=== PATIENT | male | born 1970 | race Caucasian/White ===

== ENCOUNTER 2016-12-18 11:30 | Observation (INO) | payer BC ==
--- NOTE | 2016-12-18 11:56 | Emergency Department Record ---
History of Present Illness - General Chief Complaint: Dizziness Stated Complaint: FLANK PAIN Time Seen by Provider: 12/18/16 11:37 Source: Patient Mode of Arrival: Stretcher Limitations: No limitations - History of Present Illness Initial Comments: The patient is here due to a multitude of complaints. He tripped and fell 2 days ago at home and his the back of his head on a metal object and also scraped is R flank on metal also. He has had some L facial numbness since the fall but denied any arm or leg weakness, numbness, tingling or balance issues. Today he was at work at the [employer] and began to feel some weakness, and then a L chest mild aching pain with mild SOB. There was no sweating, nausea, or new dizziness. 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 The patient's main complaint to EMS was from the fall and the flank pain. The patient's only cardiac risk factor is tobacco use. He has had a neg heart Cath many years ago and a neg EST a year ago per the patient. He also was admitted to the hospital about 14 months ago for the same thing and the facial numbness did resolve. MD Complaint: Dizziness, Lightheadedness Onset/Timin -: Hour(s) Description: Lightheadedness, Other Improves With: Nothing Worsens With: Nothing Associated Symptoms: Shortness of breath, Weakness - Reymundo Coma Scale Eye Response: (4) Open spontaneously Motor Response: (6) Obeys commands Verbal Response: (5) Oriented [place] Total: 15 - Related Data Home Medications Medication Instructions Recorded Confirmed Last Taken No Home Med [NO HOME MEDS] 12/18/16 12/18/16 Unknown Allergies Allergy/AdvReac Type Severity Reaction Status Date / Time No Known Drug Allergies Allergy Verified 10/12/15 09:17 Travel Screening - Travel/Exposure Within Last 30 Days Have you traveled within the last 30 days?: No - Travel/Exposure Within Last Year Have you traveled outside the [place] in the last year?: No - Additonal Travel Details Have you been exposed to anyone with a communicable illness?: No - Travel Symptoms Symptom Screening: None Review of Systems Constitutional: Denies: Chills, Fever Eyes: Denies: Eye discharge ENT: Denies: Congestion Respiratory: Denies: Cough, Dyspnea Past Medical History - SOCIAL HISTORY Smoking Status: Current every day smoker Alcohol Use: None Drug Use: None - RESPIRATORY Hx Respiratory Disorders: No - CARDIOVASCULAR Hx Cardio Disorders: Yes Hx Cardiac Cath: Yes Hx Chest Pain: Yes Comment:: stress test here 3 yrs ago - NEURO Hx Neuro Disorders: No - GI Hx GI Disorders: Yes Comment:: gastric bypass 1+ yr ago - Hx Genitourinary Disorders: No - ENDOCRINE Hx Endocrine Disorders: No Hx Diabetes: No Hx Thyroid Disease: No - MUSCULOSKELETAL Hx Musculoskeletal Disorders: No - PSYCH Hx Psych Problems: No - HEMATOLOGY/ONCOLOGY Hx Hematology/Oncology Disorders: No Family Medical History Any Significant Family History?: No Hx Cancer: Father Hx Diabetes: Mother Hx Heart Disease: Father, Brother/Sister Physical Exam - General General Appearance: Alert, Oriented x3, Cooperative, No acute distress - Head Head exam: Normocephalic. negative: Atraumatic (There is a healing superficial laceration to the R posterior parietal area.) - Eye Eye exam: Normal appearance, PERRL, EOMI - ENT Throat exam: Normal inspection. negative: Tonsillar erythema, Tonsillar exudate - Neck Neck exam: Normal inspection, Full ROM. negative: Tenderness - Respiratory Respiratory exam: Normal lung sounds bilaterally. negative: Respiratory distress - Cardiovascular Cardiovascular Exam: Regular rate, Normal rhythm, Normal heart sounds - GI/Abdominal GI/Abdominal exam: Soft, Normal bowel sounds. negative: Tenderness - Extremities Extremities exam: Normal inspection, Full ROM, Normal capillary refill. negative: Tenderness - Neurological Neurological exam: Alert, Normal gait, Oriented X3. negative: Abnormal gait, Altered, Motor sensory deficit (There is subjective numbness to the L lower face but it is very mild. There is no weakness or facial droop.) Course Vital Signs 12/18/16 11:40 Temperature 98.2 F Pulse Rate 98 H Respiratory 18 Rate Blood Pressure 112/50 Pulse Ox 54 L - Reevaluation(s) Reevaluation #1: The patient is doing very well at this time. He is resting comfortably with no CP or SOB or YIP. His L facial numbness has not changed and there are no signs of any significant injury on his head CT. Due to the nature of the patient's complaints I did discuss the case with Fatou (ANGELICA) and she did agree to admit the patient overnight. We will place a consult to Dr. Chinchilla and will admit the patient overnight. 12/18/16 13:42 Medical Decision Making - Data Complexity MDM Data: Labs Ordered and/or Reviewed, X-Ray Ordered and/or Reviewed, EKG Ordered and/or Reviewed - Lab Data Result diagrams: 12/18/16 12:09 12/18/16 12:09 - EKG Data -: EKG Interpreted by Me EKG: No Acute Changes, Normal EKG - Radiology Data Radiology results: Report reviewed (CXR: No acute changes. Head CT: Neg for any acute changes.) Disposition Disposition: Admit Clinical Impression: Left facial numbness Chest pain Qualifiers: Chest pain type: unspecified Qualified Code(s): R07.9 - Chest pain, unspecified Disposition: Still a Patient at [facility] Decision to Admit: Admit from ER Decision to Admit Date: 12/18/16 Decision to Admit Time: 13:44 Accepting Physician: Deysi Time Discussed w/Accepting Physician: 13:44 Condition: (2) Stable Time of Disposition: 13:44 Quality - Quality Measures Quality Measures: N/A - Blood Pressure Screening View Details: Yes Does Patient Have Any of the Following: No Blood Pressure Classification: Normal BP Reading Systolic Measurement: 112 Diastolic Measurement: 75 Screening for High Blood Pressure: < Normal BP, F/U Not Required > [G8783]
[2016-12-18] MEDS ORDERED: Diph,Pert(Acell),Tet Vac 0.5 ML SYR IM ONE (12:01)
[2016-12-18 12:25] LABS: BASO % 0.3 % (0-6); EOS % 1.2 % (0-6); GRAN % 53.3 % (47-80); HEMATOCRIT 42.2 % (42.0-52.0); HEMOGLOBIN 14.4 gm/dl (14.0-18.0); LYMPH % 39.4 % (16-45); MEAN CELL VOLUME 88.5 fl (81-97); MEAN CORPUSCULAR HEMOGLOBIN 30.2 pg (27-33); MEAN CORPUSCULAR HGB CONC 34.1 g/dl (32-36); MEAN PLATELET VOLUME 10.1 fl (7.4-10.4); MONO % 5.8 % (0-9); PLATELET COUNT 249 K/uL (130-400); RED BLOOD COUNT 4.77 M/uL (4.40-5.70); RED CELL DISTRIBUTION WIDTH 13.4 % (11.5-14.5); WHITE BLOOD COUNT W/O DIFF 7.8 K/uL (4.2-12.2)
[2016-12-18 12:39] LABS: INR 1.04; PARTIAL THROMBOPLASTIN TIME 25.3 SECONDS (24.5-39.1); PROTHROMBIN TIME (PATIENT) 11.2 SECONDS (9.5-12.1)
[2016-12-18 12:49] LABS: BLOOD UREA NITROGEN 16 mg/dL (6-20); CKMB 6.7 ng/mL (<6.73); CREATINE PHOSPHOKINASE 250 U/L (39-308); CREATININE 0.6 mg/dL (0.7-1.2); EST GLOMERULAR FILTRATION RATE > 60 mL/min; GLUCOSE,RANDOM 80 mg/dL (74-109)
[2016-12-18 13:06] LABS: URINE APPEARANCE CLEAR; URINE BILIRUBIN NEGATIVE (NEGATIVE); URINE BLOOD NEGATIVE (NEGATIVE); URINE GLUCOSE (UA) NEGATIVE (NEGATIVE); URINE KETONE NEGATIVE (NEGATIVE); URINE LEUKOCYTE ESTERASE NEGATIVE (NEGATIVE); URINE NITRITE NEGATIVE (NEGATIVE); URINE PROTEIN TRACE (NEGATIVE)
[2016-12-18 13:07] LABS: URINE COLOR AMBER
[2016-12-18 13:11] LABS: URINE EPITHELIAL CELLS RARE (FEW); URINE RBC NONE SEEN (NONE SEEN); URINE WBC NONE SEEN (0-2/hpf)
[2016-12-18 13:19] LABS: CKMB RELATIVE INDEX 2.68 % (0-4)
[2016-12-18] MEDS ORDERED: MORPHINE SULFATE 5 MG/ML PFS IVP ONE (13:21)
[2016-12-18] MEDS ORDERED: ASPIRIN 325 MG TAB ENTERIC-COATED PO ONE (13:21)
[2016-12-18] MEDS ORDERED: ACETAMINOPHEN 325 MG TAB PO ONE (14:48)
[2016-12-18] MEDS ORDERED: ACETAMINOPHEN 500 MG TABLET PO PRN (14:59)
[2016-12-18 15:16] LABS: ALBUMIN 3.1 g/dL (4.0-5.0); ALKALINE PHOSPHATASE 58 U/L (40-129); ALT/SGPT 11 U/L (<41); AST/SGOT 22 U/L (10.0-50.0); LIPASE 23 U/L (13-60); TOTAL PROTEIN 6.2 g/dL (6.6-8.7)
[2016-12-18 15:17] LABS: BILIRUBIN,DIRECT < 0.2 mg/dL (0-0.3)
[2016-12-18] MEDS: HYDROCODONE/APAP 5/325MG TABLET PO PRN ×2 (15:38→19:05)
[2016-12-18] MEDS ORDERED: PANTOPRAZOLE SODIUM 40 MG TABLET PO ONE (18:28)
[2016-12-18] MEDS ORDERED: MAGNESIUM HYDROXIDE/AL HYDROX 30 ML, LIDOCAINE VISC 2% 200 MG PO ONE ×2 (18:28)
--- NOTE | 2016-12-18 21:19 | History & Physical ---
History of Present Illness - Date of Service Date of Service for History & Physical: 12/19/16 - History of Present Illness Admitting Diagnosis: 1. Chest pain with L facial numbness. History of Present Illness: 46yo male with CC of chest discomfort. He has history of gastric bypass and chest pain which was evaluated by Dr. Ashley one year ago. The patient presented to the ED due to a multitude of complaints. He tripped and fell 2 days ago at home and hit the back of his head on a metal object and also scraped is R flank on metal also. He has had some intermittent L facial numbness ongoing for the past year but denied any arm or leg weakness, numbness , tingling or balance issues. Today he was at work at the [employer] and began to feel some generalized weakness, and then a L chest/epigastric mild aching pain. There was no sweating, nausea, or new dizziness. 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 The patient's main complaint to EMS was from the fall and the flank pain. While in the ED, Patient had EKG without ST changes and no changes from previous. His first set of cardiac enzymes returned wnl. His CXR was negative for acute process. Ct head was negative for fracture or hemorrhage. His cbc and cmp were unremarkable. Lipids were not elevated. Patient was admitted for observation and Dr. Cobb was consulted. 12/19/16- Patient states his chest pain was relieved with norco as was the intermittent left facial numbness. Patient states he has been having that worked up with Dr. Hernandes, his pcp, for about a year now. He is supposed to be getting referred to neurology for further evaluation. He does have history of gastric bypass and does not take any vitamins. He says the chest pain is more located below his sternum on the left side. He denies any shortness of breath, vision change, left arm numbness, jaw pain, nausea or sweating. says he wouldn't have come in if co-worker hadn't called EMS. pcp: Greta Travel Screening - Travel/Exposure Within Last 30 Days Have you traveled within the last 30 days?: No - Travel/Exposure Within Last Year Have you traveled outside the [place] in the last year?: No - Additonal Travel Details Have you been exposed to anyone with a communicable illness?: No - Travel Symptoms Symptom Screening: None Review of Systems Constitutional: Denies: Chills, Fever Eyes: Denies: Eye discharge ENT: Denies: Congestion Respiratory: Denies: Cough, Dyspnea Past Medical History - SOCIAL HISTORY Smoking Status: Current every day smoker Alcohol Use: None Drug Use: None - RESPIRATORY Hx Respiratory Disorders: No - CARDIOVASCULAR Hx Cardio Disorders: Yes Hx Cardiac Cath: Yes Hx Chest Pain: Yes Comment:: stress test here 3 yrs ago - NEURO Hx Neuro Disorders: No - GI Hx GI Disorders: Yes Comment:: gastric bypass 1+ yr ago - Hx Genitourinary Disorders: No - ENDOCRINE Hx Endocrine Disorders: No Hx Diabetes: No Hx Thyroid Disease: No - MUSCULOSKELETAL Hx Musculoskeletal Disorders: No - PSYCH Hx Psych Problems: No - HEMATOLOGY/ONCOLOGY Hx Hematology/Oncology Disorders: No Family Medical History Any Significant Family History?: No Hx Cancer: Father Hx Diabetes: Mother Hx Heart Disease: Father, Brother/Sister H&P Meds/Allergies - Allergies Allergies: Allergies Allergy/AdvReac Type Severity Reaction Status Date / Time No Known Drug Allergies Allergy Verified 10/12/15 09:17 - Home Medications Home Medications Medication Instructions Recorded Confirmed Last Taken No Home Med [NO HOME MEDS] 12/18/16 12/18/16 Unknown - Active Medications Active Medications: Current Medications Acetaminophen (Tylenol 500mg Tab) 500 mg PO Q6H PRN PRN Reason: PAIN/TEMP Hydrocodone Bitart/Acetaminophen (Telephone 5mg/325mg) 1 each PO Q4H PRN PRN Reason: Analgesia Last Admin: 12/18/16 19:05 Dose: 1 each Aspirin (Ecotrin (Ec)) 325 mg PO DAILY TATA Pantoprazole Sodium (Protonix) 40 mg PO DAILYAC [facility] Physical Exam - Vital Signs Vital Signs: Vital Signs - Last 24 Hrs Temp Pulse Pulse Resp BP BP Pulse Ox 12/18/16 19:45 97.5 F L 51 L 104/53 96 12/18/16 18:21 97.6 F 51 L 16 100/46 97 12/18/16 15:18 20 12/18/16 15:00 47 L 16 112/75 98 12/18/16 14:55 97.9 F 46 L 18 125/71 97 - General General Appearance: Alert, Oriented x3, Cooperative, No acute distress Limitations: No limitations - Head Head exam: Normocephalic. negative: Atraumatic (There is a healing superficial laceration to the R posterior parietal area.) - Eye Eye exam: Normal appearance, PERRL, EOMI - ENT Throat exam: Normal inspection. negative: Tonsillar erythema, Tonsillar exudate - Neck Neck exam: Normal inspection, Full ROM. negative: Tenderness - Respiratory Respiratory exam: Normal lung sounds bilaterally. negative: Respiratory distress - Cardiovascular Cardiovascular Exam: Regular rate, Normal rhythm, Normal heart sounds - GI/Abdominal GI/Abdominal exam: Soft, Normal bowel sounds. negative: Tenderness - Extremities Extremities exam: Normal inspection, Full ROM, Normal capillary refill. negative: Tenderness - Neurological Neurological exam: Alert, Normal gait, Oriented X3. negative: Abnormal gait, Altered, Motor sensory deficit (There is subjective numbness to the L lower face but it is very mild. There is no weakness or facial droop.) Results - Labs Result Diagrams: 12/18/16 12:09 12/18/16 12:09 Labs Last 24 Hours: Laboratory Results - last 24 hr 12/18/16 12/19/16 18:00 02:00 CK-MB (CK-2) Cancelled Cancelled Troponin T Cancelled Cancelled VTE H&P Assessment - Risk for VTE Risk for VTE: No Risk Level: Very Low Risk Assessment Date: 12/19/16 Risk Assessment Time: 09:00 VTE Orders Placed or Will Be Placed: No VTE Reason for No Prophylaxis: Not Indicated Plan - Detailed Diagnosis and Plan (1) Chest pain Status: Acute Qualifiers: Chest pain type: unspecified Qualified Code(s): R07.9 - Chest pain, unspecified Base Code: R07.9 - CHEST PAIN, UNSPECIFIED Comment: 12/19/16- Resolved. Dr. Cobb evaluated patient. He did not feel pain was cardiac in origina and did not feel patient should continue to have serial enzymes, repeat stress test or echo. He did want him to have 48H holter monitor for persistent bradycardia which was ordered and he will follow up with him in clinic. -will plan to discharge home today (2) Bradycardia Status: Acute Base Code: R00.1 - BRADYCARDIA, UNSPECIFIED Comment: 12/19/16 - stable. Has history of bradycardia and was evaluated by Dr. Ashley for this about a year ago. -will set him up [facility] 48H holter monitor as Dr. Cobb has recommended -He will follow up with [facility] in the clinic. Specialty clinic to schedule (3) Full code status Status: Acute Base Code: Z78.9 - OTHER SPECIFIED HEALTH STATUS Comment: - patient is full code (4) DVT prophylaxis Status: Acute Base Code: [id number] - Comment: 12/19/16- patient is low risk -encouraged ambulation
[2016-12-19] MEDS ORDERED: PANTOPRAZOLE SODIUM 40 MG TABLET PO SCH (07:00)
--- NOTE | 2016-12-19 07:45 | RADIOLOGY REPORT ---
EXAM: CHEST, TWO VIEWS HISTORY: PATIENT FELL ON A BARREL TWO DAYS AGO STRIKING RIGHT LOWER THORAX AREA AND POSTERIOR RIGHT PARIETAL REGION. TECHNIQUE: PA and lateral views of the chest were obtained. Comparison: Two view chest 10/12/15. Encounter: Initial. FINDINGS: The heart size is normal. The lungs appear expanded with no acute infiltrate seen. No pleural effusion or pneumothorax evident. Hypertrophic spurring in the spine. IMPRESSION: HYPERTROPHIC SPURRING IN THE SPINE. NO ACUTE INFILTRATE OR PNEUMOTHORAX IDENTIFIED. JOB NUMBER: [id number] MTDD
--- NOTE | 2016-12-19 07:55 | CT SCAN REPORT ---
EXAM: EMERGENCY HEAD CT HISTORY: HEAD TRAUMA, PATIENT FELL TWO DAYS AGO WITH ABRASION RIGHT PARIETAL REGION. TECHNIQUE: Axial CT scan of the head was performed without IV contrast. Comparison: Head CT dated 10/12/15. Encounter: Initial. FINDINGS: No definite acute intracranial hemorrhage identified. No focal mass effect or midline shift apparent. No definite acute infarct or intracranial mass lesion is seen. Small cyst or polyp right maxillary antrum also present previously. No depressed calvarial fracture evident. There is minor opacification of a few mastoid air cells laterally on the right today, new since the prior study. IMPRESSION: 1. NO ACUTE INTRACRANIAL HEMORRHAGE OR FOCAL MASS EFFECT EVIDENT. 2. CYST OR POLYP RIGHT MAXILLARY ANTRUM BEFORE. 3. OPACIFICATION OF A FEW MASTOID AIR CELLS LATERALLY ON THE RIGHT TODAY NOT SEEN BACK ON 10/12/15. NO DEPRESSED CALVARIAL FRACTURE EVIDENT. JOB NUMBER: [id number] MTDD
[2016-12-19] MEDS ORDERED: ACETAMINOPHEN 500 MG TABLET PO PRN (09:45)
--- NOTE | 2016-12-19 09:57 | Discharge Summary ---
Providers Discharge Summary Date: 12/19/16 Date of admission: 12/18/16 14:46 Expected Date of Discharge: 12/19/16 Attending physician: Vasquez Jo Primary care physician: ALICE HERNANDES D.O. Physical Exam - Vital Signs Vital Signs: Vital Signs - Last 24 Hrs Temp Pulse Pulse Resp BP BP Pulse Ox 12/19/16 04:00 97.5 F L 46 L 92/48 98 12/19/16 00:00 97.4 F L 46 L 82/34 97 12/18/16 21:00 42 L 16 12/18/16 19:45 97.5 F L 51 L 104/53 96 12/18/16 18:21 97.6 F 51 L 16 100/46 97 12/18/16 15:18 20 12/18/16 15:00 47 L 16 112/75 98 12/18/16 14:55 97.9 F 46 L 18 125/71 97 - General General Appearance: Alert, Oriented x3, Cooperative, No acute distress Limitations: No limitations - Head Head exam: Normocephalic. negative: Atraumatic (There is a healing superficial laceration to the R posterior parietal area.) - Eye Eye exam: Normal appearance, PERRL, EOMI - ENT Throat exam: Normal inspection. negative: Tonsillar erythema, Tonsillar exudate - Neck Neck exam: Normal inspection, Full ROM. negative: Tenderness - Respiratory Respiratory exam: Normal lung sounds bilaterally. negative: Respiratory distress - Cardiovascular Cardiovascular Exam: Regular rate, Normal rhythm, Normal heart sounds - GI/Abdominal GI/Abdominal exam: Soft, Normal bowel sounds. negative: Tenderness - Extremities Extremities exam: Normal inspection, Full ROM, Normal capillary refill. negative: Tenderness - Neurological Neurological exam: Alert, Normal gait, Oriented X3. negative: Abnormal gait, Altered, Motor sensory deficit (There is subjective numbness to the L lower face but it is very mild. There is no weakness or facial droop.) Hospitalization - Hospitalization Admission Diagnosis: 1. Chest pain with L facial numbness. - Problem List/Discharge Diagnosis (1) Chest pain Status: Acute Discharge Diagnosis: Chest pain type: unspecified Qualified Code(s): R07.9 - Chest pain, unspecified Base Code: R07.9 - CHEST PAIN, UNSPECIFIED Comment: 12/19/16- Resolved. Dr. Cobb evaluated patient. He did not feel pain was cardiac in origina and did not feel patient should continue to have serial enzymes, repeat stress test or echo. He did want him to have 48H holter monitor for persistent bradycardia which was ordered and he will follow up with him in clinic. -will plan to discharge home today (2) Bradycardia Status: Acute Base Code: R00.1 - BRADYCARDIA, UNSPECIFIED Comment: 12/19/16 - stable. Has history of bradycardia and was evaluated by Dr. Ashley for this about a year ago. -will set him up [facility] 48H holter monitor as Dr. Cobb has recommended -He will follow up with [facility] in the clinic. Specialty clinic to schedule (3) DVT prophylaxis Status: Acute Base Code: [id number] - Comment: 12/19/16- patient is low risk -encouraged ambulation (4) Full code status Status: Acute Base Code: Z78.9 - OTHER SPECIFIED HEALTH STATUS Comment: - patient is full code - Hospitalization Course Disposition: Home, Self-Care Hospital Course: 46yo male with CC of chest discomfort. He has history of gastric bypass and chest pain which was evaluated by Dr. Ashley one year ago. The patient presented to the ED due to a multitude of complaints. He tripped and fell 2 days ago at home and hit the back of his head on a metal object and also scraped is R flank on metal also. He has had some intermittent L facial numbness ongoing for the past year but denied any arm or leg weakness, numbness , tingling or balance issues. Today he was at work at the [employer] and began to feel some generalized weakness, and then a L chest/epigastric mild aching pain. There was no sweating, nausea, or new dizziness. He then told someone at the [employer] he had CP so they called an ambulance. The patient's main complaint to EMS was from the fall and the flank pain. While in the ED, Patient had EKG without ST changes and no changes from previous. His first set of cardiac enzymes returned wnl. His CXR was negative for acute process. Ct head was negative for fracture or hemorrhage. His cbc and cmp were unremarkable. Lipids were not elevated. Patient was admitted for observation and Dr. Cobb was consulted. 12/19/16- Patient states his chest pain was relieved with norco as was the intermittent left facial numbness. Patient states he has been having that worked up with Dr. Hernandes, his pcp, for about a year now. He is supposed to be getting referred to neurology for further evaluation. He does have history of gastric bypass and does not take any vitamins. He says the chest pain is more located below his sternum on the left side. He denies any shortness of breath, vision change, left arm numbness, jaw pain, nausea or sweating. says he wouldn't have come in if co-worker hadn't called EMS. pcp: Greta Procedures: Cardiology Procedures 12/19/16 09:36 Holter Monitor NOW Condition at Discharge: (2) Stable Discharge Medications - Discharge Medications Home Medications: Ambulatory Orders No Home Med [NO HOME MEDS] 12/18/16 [Last Taken Unknown] Discharge Plan - Discharge Instructions Activity at Discharge: Resume Usual Activities As Tolerated Diet at Discharge: Low Fat, Low Cholesterol Instructions: Chest Pain (DC), Holter Monitoring (DC), Low Fat Diet (DC), Heart Healthy Diet (DC), Cholesterol and Your Health (GEN), Telemetry Monitoring (GEN), Bradycardia (DC) Additional Instructions: 2 Activity: Resume Usual Activities As Tolerated 2 Diet: Low Fat, Low Cholesterol 2 Consults: [] 2 Follow Up: [follow up with Dr. Ashley in specialty clinic to review holter monitor report, 12/27/16 at 1030am Follow up with Dr. Hernandes to discuss referral to neurology, call office if no response heard within 1 day ] 2 Dressing/Wound Care: (Type) (Change) 2 Additional: [] Respiratory will be setting you up with a 48 hour holter monitor, please return to registration in 48 hours to have holter removed. Please call with any questions or concerns Return to ED for any new or worsening concerns Quality Measures - Quality Measures Quality Measures: Documentation of Current Medications in Medical Record, Screening for High Blood Pressure and F/U Documented - Current Medications Quality Measure: Measure #130: Documentation of Current Medications Documentation of Current Medications: <Current Medications Documented/Reviewed> [G7929] - Blood Pressure Screening Quality Measure: Screening for High Blood Pressure and Follow-Up Documented Does Patient Have Any of the Following: No Blood Pressure Classification: Normal BP Reading Systolic Measurement: 112 Diastolic Measurement: 75 Screening for High Blood Pressure: < Normal BP, F/U Not Required > [G1481] - Elder Abuse Suspicion Index EASI Reference Information: Maria Elena SOLANO, Sherita C, Gwyn D, Silviano Shi.Development and validation of a tool to assist physicians identification of elder abuse: The Elder Abuse Suspicion Index (EASI ). Journal of Elder Abuse and Neglect, 2008; 20 (3): 276-300.
[2016-12-19] MEDS ORDERED: ASPIRIN 325 MG TAB ENTERIC-COATED PO SCH (10:00)
--- NOTE | 2016-12-19 15:24 | Medical Records Consult ---
DATE OF CONSULTATION: 12/18/16 CHIEF COMPLAINT: Amilcar Vang is a 46-year-old male who was previously seen by my associate, Dr. Ashley, on 10/22/15. At the time, he appeared to have similar symptoms of chest discomfort and facial numbness and tingling. 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 He states that he did have some trauma and have a fall on his right side 24 hours before appearing in the Emergency Room. He does have a history of bariatric surgery and lost over 200 lb. He was seen in the Emergency Department. He had similar symptoms to the one he had when Dr. Ashley evaluated him. Electrocardiograms showed no significant changes. Previous treadmill exercise test at a fairly high level, i.e. 13.4 METs , did not show any significant ST or T-wave changes or arrhythmia. Echocardiogram also completely normal. The patient is being admitted for OBV overnight. FURTHER REVIEW OF SYSTEMS: INTEGUMENTARY: The patient integumentary system reveals no change in hairs or nails, rashes or skin lesions. HEENT: The patient wears corrective lenses. He denies any hearing loss, epistaxis, or hoarseness. RESPIRATORY: He denies dyspnea, wheezing, or hemoptysis. CARDIOVASCULAR: Refer to Chief Complaint complaining of chest discomfort not typical for angina. GI/ : Negative as is genitourinary. He does have chronic arthritic symptoms. NEUROLOGIC: He continues to have facial numbness, which has not been diagnosed. PHYSICAL EXAMINATION: GENERAL: Reveals a well-nourished, well-hydrated who is resting comfortably in the Emergency Room. He did have an abrasion on his right thigh and pointed to an area of his head where he had fallen. I didn't see any bleeding at the site. HEART: Heart sounds are clear. First and seconds sounds normal. No S3. No S4. LUNGS: Clear to auscultation in all listening posts. ABDOMEN: Normal. No evidence of peripheral edema. IMPRESSION: At this point, his chest discomfort is very atypical for cardiac disease. I don't think further stress testing or echocardiography would be indicated. The patient is going to be placed in OBV overnight and the Admitting Service will decide in the morning if any work-up needs to be done. We would always be happy to answer the phone to consult with them if they have any questions. JOB NUMBER: [id number] MTDD
--- NOTE | 2016-12-26 15:41 | Holter Monitor Report ---
DATE OF TEST: 12/26/16 A three-channel 24-hour Holter was performed. The patient was asymptomatic based on his diary. The average heart rate was 66 beats per minute with no episodes of tachycardia. Heart rate less than 50 beats was noted 21% of the time. There were no long pauses. The patient had very occasional 5 ventricular ectopics and very occasional 30 supraventricular ectopic beats. No significant ST or T-wave changes. Most of the periods of bradycardia occurred while asleep. SUMMARY: THIS IS A RATHER BENIGN 24-HOUR HOLTER SHOWING VERY OCCASIONAL PACs AND PVCs WITHOUT ANY SIGNIFICANT ANDRY OR TACHYCARDIA. THE BRADYCARDIA OCCURRED DURING SLEEP. THE PATIENT WAS ABLE TO INCREASE HIS HEART RATES SO CHRONOTROPIC INCOMPETENCE IS NOT PRESENT. JOB NUMBER[facility] [id number] [facility]
== END 2016-12-19 11:15 | disposition home or self-care (01) ==
LOC: ER 11:30 → MEDSURG 14:46
PROVIDERS: ADMIT Internal Medicine; ATTEND Internal Medicine
DX: R07.9 Chest pain, unspecified (principal); R20.0 Anesthesia of skin; R00.1 Bradycardia, unspecified
CPT/HCPCS: 99285; 96374; 96372; 99284; 82550; 83690; 85025; 85730; 85610; 80076; 82553; 80048; 81001; 84484; 71020; 70450; 93005 ×2; 93225; 93226; 93010; G0378 ×2; J2270; 90715; 99220